=== PATIENT | male | born 2000 | race Caucasian/White ===

== ENCOUNTER 2022-10-30 20:09 | Emergency (ER) | payer SELFPAY ==
[2022-10-30 20:29] VITALS: BP 119/73; PULSE 96; RESP 22; TEMP 36.6; O2SAT 92
[2022-10-30 20:38] VITALS: BP 150/100; PULSE 122; O2SAT 96; O2SAT 98; BMI 30.4
--- NOTE | 2022-10-30 20:50 | PC.NURSE ---
pt aox4 calm and cooperative resting quietly, watching tv no apparent distress
--- NOTE | 2022-10-30 21:00 | PC.NURSE ---
pt admits to passing out and was unsure as to how long denies any drug use admits to smoking marijuana and copious amounts of hard liquor n/v 04/03 pain for headache
[2022-10-30 23:44] VITALS: BP 120/59; PULSE 74; RESP 12; TEMP 36.7; O2SAT 98
--- NOTE | 2022-10-30 23:52 | ED_ITS ---
HPI - General Adult General Chief complaint: Overdose Stated complaint: OD Time Seen by Provider: 10/30/22 20:32 Source: patient Mode of arrival: ambulatory Limitations: no limitations History of Present Illness HPI narrative: 22 yold male presens to the ED for alcohol use and smoking marijuana and brought to the ED for overdose. patient was given narcan. patient thinks his weed was laced. Patient admits to drinking plenty of hard dark liquour. patient denies depression, or suicidal/ homicidal ideation. Related Data Allergies Allergy/AdvReac Type Severity Reaction Status Date / Time No Known Allergies Allergy Verified 10/30/22 21:48 Review of Systems Review of Systems: overdose Yes all other systems are reviewed and are negative [facility] Social History Social History Alcohol intake: current Alcohol intake frequency: other Alcohol type: hard liquor Smoked in Last 30 Days: Yes Use of substances other than those prescribed or required for medical reasons: Unknown Advance Directives: No Advance Directives Information Provided: No Physical Exam ED Vital Signs: Vital Signs - 24 hr 10/30/22 20:29 10/30/22 20:38 10/30/22 23:44 Temperature 97.9 F 98.1 F Pulse Rate 96 Respiratory Rate 22 H Blood Pressure 119/73 Pulse Oximetry 92 96 Oxygen Delivery Method Room Air Room Air 10/30/22 23:44 Temperature 98.1 F Pulse Rate 74 Respiratory Rate 12 Blood Pressure 120/59 L Pulse Oximetry 98 Oxygen Delivery Method BMI result Body Mass Index 30.4 Const General: cooperative, healthy appearing, comfortable, no acute distress, well developed, alert, awake and Physically active Orientation/consciousness: oriented to person, oriented to place, oriented to time and patient oriented x3 HENMT Head: Yes normal to inspection, Yes No palpable skull fracture present, Yes normocephalic, Yes atraumatic and No abrasion Ears: hearing grossly normal bilaterally, external ears normal, TM's normal bilaterally, EAC's normal, mastoids normal and no periauricular adenopathy General nose exam: Normal external nose present and Normal nares present Face and sinus: Yes normal facial exam and Yes sinuses nontender Throat: Yes posterior oropharynx normal, Yes tonsils normal and Yes uvula midline Eyes General: appearance normal, both eyes and all related structures Neck Neck: Yes normal visual inspection, Yes full ROM, Yes no lymphadenopathy, Yes no meningeal signs, Yes trachea midline, Yes supple, No anterior neck swelling and No tender Chest Chest palpation & inspection: normal inspection of the chest and normal palpa tion of entire chest wall Resp Effort & Inspection: normal respiratory effort and able to speak in complete sentences Cardio Jugular venous distension: no JVD Heart sounds: S1 normal heart sound present and S2 normal heart sound present GI Inspection: Yes normal to inspection and No abdominal wall ecchymosis Palpation (GI): Soft to palpation, not firm, nontender, no guarding and not rigid General: No CVA tenderness and Yes no CVA tenderness Back/Spine/Pelvis Back: no CVA tenderness, No CVA tenderness and No back tenderness Skin General skin exam: no rashes or lesions noted and elasticity normal Neuro General: oriented to person, oriented to place, oriented to time, patient oriented x3, gait normal, tone normal, moves all extremities, Normal light touch and pain sensation, no meningeal signs, no focal motor deficits, CN's II-XI intact bilaterally and normal sensation to monofilament Extrem General: Yes normal to inspection and Yes full ROM Psych Appearance: grossly normal, well kempt and not disheveled Course Course Course Narrative: patient will be observed in the ER. Reevaluation(s) Reevaluation #1: Patient vital signs stable. Patient does not want detox. Patient alert oriented x3 on discharge. Patient discharged with girlfriend. Patient well- appearing Time: 01:22 Medical Decision Making Medical Decision Making [facility] Narrative: 22-year-old male brought to the ED for overdose. Patient drinking large amounts of alcohol and smoke laced marijuana. Whole-body evaluated negative for signs of trauma. Vital signs stable throughout ED visit. Patient does not want detox. Patient alert oriented x3 with normal gait upon discharge. Differential Diagnosis Differential Diagnoses: The differential diagnosis associated with the presenta tion includes ( Alcohol intoxication, substance abuse, suicidal, homicdidal) Consult Healthcare Provider Management of the patient was discussed with: Poison Information Specialist (MIRIAN) Discharge Plan Discharge Clinical Impression: Drug overdose, Alcohol use Patient Disposition: Home, Self-Care Instructions: Polysubstance Abuse (ED), Adult Overdose (ED) Additional Instructions: return to the ED for any chest pain, shortness of breath, abdominal pain, fever, chills, neck pain, visual/auditory hallucinations, suicidal/homicidal ideation, or any other concerning symptoms. Please follow-up with primary care provider. Interventions: ED Discharge Assessment Last Done: 10/31/22 00:13 Discharge Date/Time: 10/31/22 00:14 Print Language: [place]
== END 2022-10-31 00:14 | disposition home or self-care (01) ==
PROVIDERS: Emergency Provider Internal Medicine
DX: T40.711A Poisoning by cannabis, accidental (unintentional), initial encounter (principal); F10.129 Alcohol abuse with intoxication, unspecified; Y90.9 Presence of alcohol in blood, level not specified; Y92.9 Unspecified place or not applicable
CPT/HCPCS: 99284; 99285